=== PATIENT | female | born 1955 | race Caucasian/White ===

== ENCOUNTER 2017-10-10 10:23 | Observation (INO) | payer MEDICARE ==
[2017-10-09 12:20] LABS: BASOPHILS # (AUTO) 0.1 (0.0-0.1); BASOPHILS % 0.6 % (0.0-1.0); EOSINOPHILS # (AUTO) 0.3 (0.0-0.4); EOSINOPHILS % 3.4 % (0.0-6.0); HEMATOCRIT 44.1 % (34.2-44.1); HEMOGLOBIN 15.1 g/dL (12.0-16.0); LYMPHOCYTES # (AUTO) 2.2 (1.0-3.2); LYMPHOCYTES % 24.7 % (18.0-39.1); MEAN CORPUSCULAR HEMOGLOBIN 31.5 pg (28-32); MEAN CORPUSCULAR HGB CONC 34.2 g/dL (31-35); MEAN CORPUSCULAR VOLUME 92.1 fL (81-99); MONOCYTES # (AUTO) 0.8 (0.2-0.8); MONOCYTES % 9.3 % (4.4-11.3); NEUTROPHILS # (AUTO) 5.6 (2.1-6.9); NEUTROPHILS % 61.7 % (38.7-80.0); PLATELET COUNT 295 x10e3/uL (140-360); RED BLOOD COUNT 4.79 x10e6/uL (3.6-5.1); RED CELL DISTRIBUTION WIDTH 12.4 % (11.7-14.4)
[2017-10-09 12:39] LABS: ALBUMIN 4.5 g/dL (3.5-5.0); ALBUMIN/GLOBULIN RATIO 1.2 (0.8-2.0); ANION GAP 18.7 mmol/L (8-16); CALCIUM 11.2 mg/dL (8.4-10.2); CREATININE, SERUM 1.4 mg/dL (0.57-1.11); POTASSIUM 5.7 mmol/L (3.5-5.1)
[~2017-10-10] VITALS: Ht 152.4 cm; Wt 63.6 kg
[2017-10-10] VITALS (16 sets, daily range): BP systolic 128–186; BP diastolic 69–90
[~2017-10-10 10:23] MED LIST: AMLODIPINE BESY10 MG PO; ATORVASTATIN CA10 MG PO; CEFDINIR300 MG PO; COMBIVENT RESPIM4 GM IH; LEVOTHYROXINE50 MCG PO; LOSARTAN-HCTZ1 EAC2 PO; LOSARTAN-HCTZ1 EACH PO; METOPROLOL TART25 MG PO; PREDNISONE5 MG PO; PROAIR HFA INH8.5 GM INH; SYMBICORT 16010.2 GM; TAZTIA XT300 MG PO; ULTRAM50 MG PO
[2017-10-10] MEDS ORDERED: SODIUM CHLORIDE 0.9% 1000ML 1,000 ML ONE (10:29)
[2017-10-10] MEDS ORDERED: DIPHENHYDRAMINE HCL 25 MG CAP PO SCH (11:15)
[2017-10-10] MEDS ORDERED: ALPRAZOLAM 0.5 MG TAB PO SCH (11:15)
[2017-10-10] MEDS ORDERED: LIDOCAINE HCL 2% LOCAL 20 ML VIAL ONE (15:17)
[2017-10-10] MEDS ORDERED: IOPAMIDOL 300MG/ML 100 ML INFUS..BTL IV ONE ×2 (15:17→15:37)
[2017-10-10] MEDS ORDERED: MIDAZOLAM HCL 2 MG/2 ML VIAL ONE ×2 (15:17→15:56)
[2017-10-10] MEDS ORDERED: HEPARIN SOD/SOD CHLORIDE 2,000 ML ONE (15:17)
[2017-10-10] MEDS ORDERED: FENTANYL CITRATE/PF 100MCG/2 ML INJ ONE (15:17)
[2017-10-10] MEDS ORDERED: HEPARIN SOD (PORCINE) 1000 UNIT/ML 30ML ONE (15:27)
[2017-10-10] MEDS ORDERED: VERAPAMIL HCL 2.5 MG/ML 2 ML VIAL ONE (15:27)
[2017-10-10] MEDS ORDERED: NITROGLYCERIN/D5W 200 MCG/ML 250 ML ONE (15:27)
[2017-10-10] MEDS ORDERED: SODIUM CHLORIDE 0.9% 1000ML 2,000 ML ONE (15:28)
[2017-10-10] MEDS ORDERED: PRASUGREL 10 MG TAB ONE (15:45)
[2017-10-10] MEDS ORDERED: PROTAMINE SULFATE 10 MG/ML 5 ML VIAL ONE (15:56)
[2017-10-10] MEDS ORDERED: SODIUM CHLORIDE 0.9% 50ML 50 ML ONE (15:57)
--- NOTE | 2017-10-10 18:35 | Operative Report ---
DATE OF PROCEDURE: October 10, 2017 INDICATIONS: Peripheral arterial disease with claudication. PROCEDURES PERFORMED 1. Abdominal aortogram and bilateral lower extremity angiograms. 2. Selective placement of catheter from the right femoral artery to the left superficial femoral artery. 3. Additional 3rd-order catheter placement from the right femoral artery to the left peroneal artery. 4. Atherectomy and angioplasty of left peroneal artery. 5. Atherectomy and drug-coated balloon angioplasty of left popliteal artery. 6. Left common iliac artery stent placement. 7. Deployment of right groin Mynx vascular closure device. COMPLICATIONS: None. RECOMMENDATIONS: Dual antiplatelet therapy. Access was obtained in the right femoral artery. Abdominal aortogram demonstrated high ectatic abdominal aorta 50%, right common iliac artery 50%, left common iliac artery 80% proximal stenosis with 40 mm gradient. Right external iliac artery had 50% stenosis. Femoral arteries are not well visualized. The catheter was then advanced from the right femoral artery to the left superficial femoral artery. Distal popliteal artery had 80% stenosis. The pedal vessels could not be seen. The catheter was then advanced from the right femoral artery to the left peroneal artery confirming 2-vessel runoff and 80% stenosis in the left peroneal artery. A decision was made to intervene on the peroneal, the femoral and iliac arteries. Orbital atherectomy was performed. A small contained perforation in the left peroneal artery was noted and tamponaded with a 2.5-mm balloon. The femoral artery atherectomy resulted in large amounts of visible thrombus for which manual aspiration was required. Balloon angioplasty with a 4-mm drug-coated balloon and a 7 x 39 mm stent was deployed in the left common iliac artery without complications. The right groin was repaired using the Mynx closure device. Patient will be observed in the hospital overnight. Job#: [id number]
[2017-10-10] MEDS ORDERED: SODIUM CHLORIDE 0.9% 1000ML 1,000 ML IV ONE (20:00)
[2017-10-10] MEDS ORDERED: TRAMADOL HCL 50 MG TAB PO PRN (20:15)
[2017-10-10] MEDS ORDERED: ATORVASTATIN 10 MG TAB PO SCH (21:00)
[2017-10-10] MEDS ORDERED: ATORVASTATIN 20 MG TAB PO SCH (21:00)
[2017-10-10] MEDS: MORPHINE SULFATE 2 MG/ML SYR IV PRN (21:35)
[2017-10-11 00:45] VITALS: BP 131/62
[2017-10-11] MEDS: MORPHINE SULFATE 2 MG/ML SYR IV PRN (02:25)
[2017-10-11 05:30] VITALS: BP 149/67
[2017-10-11] MEDS ORDERED: LEVOTHYROXINE SODIUM 50 MCG TAB PO SCH (06:00)
[2017-10-11 06:33] LABS: BASOPHILS % 0.4 % (0.0-1.0); EOSINOPHILS # (AUTO) 0.2 (0.0-0.4); EOSINOPHILS % 3.1 % (0.0-6.0); HEMATOCRIT 38.2 % (34.2-44.1); HEMOGLOBIN 13.3 g/dL (12.0-16.0); LYMPHOCYTES # (AUTO) 1.1 (1.0-3.2); LYMPHOCYTES % 15.4 % (18.0-39.1); MEAN CORPUSCULAR HEMOGLOBIN 31.1 pg (28-32); MEAN CORPUSCULAR HGB CONC 34.8 g/dL (31-35); MEAN CORPUSCULAR VOLUME 89.5 fL (81-99); MONOCYTES # (AUTO) 0.7 (0.2-0.8); MONOCYTES % 9.9 % (4.4-11.3); NEUTROPHILS # (AUTO) 5.1 (2.1-6.9); NEUTROPHILS % 70.9 % (38.7-80.0); PLATELET COUNT 244 x10e3/uL (140-360); RED BLOOD COUNT 4.27 x10e6/uL (3.6-5.1); RED CELL DISTRIBUTION WIDTH 12.5 % (11.7-14.4)
[2017-10-11 06:52] LABS: ANION GAP 11.5 mmol/L (8-16); BLOOD UREA NITROGEN 10 mg/dL (7-26); BUN/CREATININE RATIO 12 (6-25); CALCIUM 9.1 mg/dL (8.4-10.2); CARBON DIOXIDE 28 mmol/L (22-29); CHLORIDE 102 mmol/L (98-107); CREATININE, SERUM 0.84 mg/dL (0.57-1.11); EST GLOMERULAR FILTRATION RATE > 60 ML/MIN (60-); GLUCOSE 96 mg/dL (74-118); POTASSIUM 3.5 mmol/L (3.5-5.1); SODIUM 138 mmol/L (136-145)
[2017-10-11 07:37] VITALS: BP 141/75
[2017-10-11] MEDS ORDERED: METOPROLOL TARTRATE 25 MG TAB PO SCH (09:00)
[2017-10-11] MEDS ORDERED: ASPIRIN 325 MG TAB PO SCH (09:00)
[2017-10-11] MEDS ORDERED: AMLODIPINE BESYLATE 10 MG TAB PO SCH (09:00)
[2017-10-11] MEDS ORDERED: HYDROCHLOROTHIAZIDE 25 MG TAB PO SCH (09:00)
[2017-10-11] MEDS ORDERED: CLOPIDOGREL BISULFATE 75 MG TAB PO SCH (09:00)
[2017-10-11] MEDS ORDERED: BUDESONIDE/FORMOTEROL 160/4.5MCG INHALER INH SCH (09:00)
[2017-10-11] MEDS ORDERED: LOSARTAN POTASSIUM 100 MG TAB PO SCH (09:27)
[2017-10-11 10:28] VITALS: BP 141/75
[2017-10-11 11:40] VITALS: BP 148/77
[2017-10-11] MEDS ORDERED: ASPIRIN EC81 MG PO (15:07)
[2017-10-11] MEDS ORDERED: PLAVIX75 MG PO (15:07)
[2017-10-11 15:20] VITALS: BP 120/67
[2017-10-11] MEDS ORDERED: ATORVASTATIN 20 MG TAB PO SCH (21:30)
[2017-10-12] MEDS ORDERED: HYDROCHLOROTHIAZIDE 25 MG TAB PO SCH (09:00)
[2017-10-12] MEDS ORDERED: ASPIRIN 81 MG ENTERIC COATED PO SCH (09:00)
[2017-10-31] MEDS ORDERED: LOSARTAN POTASSIUM 100 MG TAB PO SCH (09:00)
== END 2017-10-11 15:51 | disposition home or self-care (01) ==
LOC: CATH LAB 10:23 → CATH LAB V 16:31 → IMCU 19:26
PROVIDERS: ADMIT Internal Medicine Interventional Cardiology; ATTEND Internal Medicine Interventional Cardiology
DX: I73.9 Peripheral vascular disease, unspecified (principal); J44.9 Chronic obstructive pulmonary disease, unspecified; I10 Essential (primary) hypertension; E03.9 Hypothyroidism, unspecified; M19.91 Primary osteoarthritis, unspecified site; Z88.0 Allergy status to penicillin; E07.9 Disorder of thyroid, unspecified
CPT/HCPCS: 36415 ×2; 37221; 37227; 37231; 75716; 75774; 80048; 80053; 80061; 85025 ×2; C1724; C1769 ×2; C1887; G0378 ×2; J1644; J2001; J2250; J2270 ×2; J2720; J7030; Q9967; 37186; 37225; 37229

== ENCOUNTER → 2019-03-05 | Outpatient (CLI) | payer MEDICARE ==
[~2019-03-05] MED LIST changes: +ASPIRIN EC81 MG PO; +PLAVIX75 MG PO
--- NOTE | 2019-03-05 11:18 | Diagnostic Imaging Report ---
EXAMINATION: MRI of the lumbar spine without contrast HISTORY: Worsening severe back pain for last 6 years COMPARISON: None. TECHNIQUE: Sagittal T1, T2, STIR; axial T2 and proton density. FINDINGS: It is assumed that there are 5 lumbar vertebrae. Curvature/Alignment: Normal lordosis. Subtle right-sided curvature. Vertebrae: No evidence of recent fracture, infection, or neoplasm. Diffuse heterogeneous bone marrow signal intensity may be related to osteopenia with particularly prominent fatty replacement of the sacrum. Conus: Normal, terminating at L1 Cauda equina: Unremarkable. 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 Lower thoracic: Unremarkable. Paraspinal soft tissues: Atrophic right kidney. Moderate atrophy of the paraspinal muscles. Questionable cholelithiasis, comparison to prior studies if available is recommended , otherwise a right upper quadrant ultrasound is advised. Degenerative changes: L1-L2: Unremarkable. L2-L3: Unremarkable. L3-L4: Minimal symmetric disc bulge and facet arthrosis without stenoses L4-L5: Minimal symmetric disc bulge and posterior processes without stenoses L5-S1: Minimal symmetric disc bulge and bilateral facet arthrosis without stenoses IMPRESSION: 1. Heterogeneous bone marrow signal intensity, which may be related to osteopenia. 2. Otherwise no significant degenerative changes, no disc herniations, no spinal canal or foraminal stenoses. 3. Partially visualized atrophic right kidney and questionable cholelithiasis as described. Signed by: Dr. Sonia Hong M.D. on 03/05/2019 11:15 AM
--- NOTE | 2019-03-05 11:24 | Diagnostic Imaging Report ---
EXAMINATION: MRI of the thoracic spine without contrast HISTORY: Worsening severe back pain COMPARISON: None. TECHNIQUE: Sagittal T1 without contrast, T2, and STIR; axial T2. Coronal T2. FINDINGS: Curvature: Normal kyphosis. Vertebrae: No evidence of recent fracture, infection, or neoplasm. Mild heterogeneous bone marrow signal intensity which may be related to osteopenia. Discs: Normal Spinal canal: No mass or abnormal blood vessels. Spinal cord: Normal size and signal intensity. Foramina: Unremarkable. Paraspinal soft tissues: Possible right lower lung atelectases/pleural thickening. Partially visualized atrophic right kidney. Proximal ribs: No abnormal signal intensity. IMPRESSION: 1. No thoracic spine abnormalities to explain the patient's symptoms, particularly no disc herniations, spinal canal or foraminal stenosis. 2. Partially visualized right atrophic kidney and possible right lower lung atelectasis, comparison to prior studies if available is recommended. Signed by: Dr. Sonia Hong M.D. on 03/05/2019 11:21 AM
== END ==
LOC: MRI 08:44
PROVIDERS: ATTEND Internal Medicine Critical Care Medicine
DX: M54.6 Pain in thoracic spine (principal); M54.5 Low back pain; N26.1 Atrophy of kidney (terminal)
CPT/HCPCS: 72146; 72148

== ENCOUNTER → 2019-12-31 | Day surgery (SDC) | payer OTHER ==
[2019-12-26 11:47] LABS: BASOPHILS % 0.3 % (0.0-1.0); EOSINOPHILS # (AUTO) 0.1 (0.0-0.4); EOSINOPHILS % 0.8 % (0.0-6.0); HEMATOCRIT 45.4 % (34.2-44.1); HEMOGLOBIN 14.9 g/dL (12.0-16.0); LYMPHOCYTES # (AUTO) 1.7 (1.0-3.2); LYMPHOCYTES % 14.3 % (18.0-39.1); MEAN CORPUSCULAR HEMOGLOBIN 30.4 pg (28-32); MEAN CORPUSCULAR HGB CONC 32.8 g/dL (31-35); MEAN CORPUSCULAR VOLUME 92.7 fL (81-99); MONOCYTES # (AUTO) 1.1 (0.2-0.8); NEUTROPHILS # (AUTO) 9.1 (2.1-6.9); NEUTROPHILS % 75.1 % (38.7-80.0); PLATELET COUNT 365 x10e3/uL (140-360); RED CELL DISTRIBUTION WIDTH 12.9 % (11.7-14.4)
[2019-12-26 12:05] LABS: ALBUMIN 4.7 g/dL (3.5-5.0); ALBUMIN/GLOBULIN RATIO 1.3 (0.8-2.0); ANION GAP 17.2 mmol/L (8-16); CALCIUM 9.9 mg/dL (8.4-10.2); CREATININE, SERUM 1.33 mg/dL (0.57-1.11); POTASSIUM 4.2 mmol/L (3.5-5.1)
[~2019-12-31] VITALS: Ht 152.4 cm; Wt 54.4 kg
[2019-12-31] VITALS (16 sets, daily range): BP systolic 134–197; BP diastolic 64–82
[~2019-12-31] MED LIST changes: +CLONIDINE HCL0.1 MG PO; +DILTIAZEM 24HR180 MG PO; +FENTANYL CITRATE/PF 100MCG/2 ML INJ ONE; +HEPARIN SOD/SOD CHLORIDE 2,000 ML ONE; +IOPAMIDOL 300MG/ML 100 ML INFUS..BTL IV ONE; +LIDOCAINE HCL 2% LOCAL 20 ML VIAL ONE; +LOSARTAN-HCTZ1 EAC1 PO; +MIDAZOLAM HCL 2 MG/2 ML VIAL ONE; +SODIUM CHLORIDE 0.9% 1000ML 1,000 ML ONE
--- NOTE | 2019-12-31 14:35 | Operative Report ---
DATE OF PROCEDURE: 12/31/2019 SURGEON: Chet Aguilar MD INDICATIONS: Peripheral arterial disease, claudication. PROCEDURES PERFORMED: 1. Abdominal aortogram. 2. Abdominal aorta catheter placement. COMPLICATIONS: None. RECOMMENDATIONS: Surgical consultation. DESCRIPTION OF PROCEDURE: Access was obtained in the right femoral artery using ultrasound guidance. A 6-Thai sheath was placed. A 92% to 99% proximal abdominal aortic stenosis. Renal vessels were not well visualized. Left iliac stent was patent. Common femoral artery 50% calcified stenosis, mild disease in the femoral arteries with 2-vessel runoff to both lower extremities. No intervention deemed necessary. Sheaths removed under manual pressure. The patient discharged home the same day. Chet Aguilar MD KSB/MODL /[id number]
--- NOTE | 2019-12-31 14:45 | NUR ---
bedside report received from Po Tony RN. Alert oriented and appropriate, PERRLA, respirations even and unlabored to room air. Pulses x4 extremities equal and weak. Right groin dressing CDI. left groin w/o s/s of complications Skin warm and dry integrity appears intact, presents healthy w/o s/s of infiltration or complaint. Abdomen soft and supple. pt offered toileting, denies need to urinate or defecate. Personal affects with patient. Family not available. Pt understanding of POC. Bedside telemetry/VS reviewed. Currently w/o complaint of pain or need. Call light within reach, bed low and locked, side rails up x2. assume of care -cgf
--- NOTE | 2019-12-31 16:00 | NUR ---
Pt meets DC criteria. right groin assessed for s/s of complication and presence of hematoma. general skin warm, dry, no discolor, and pulses present in all extremities . IV removed by DS RN. Distal tip appears intact. VS WNL. Pt denies pain, sob, or need at this time. Family at bedside. Review of discharge paperwork and follow up instructions. verbalized understanding. Pt to wheelchair and transported to front of hospital. Transferred to private vehicle under own strength w/o incident with DC paperwork in hand. - cgf
== END | disposition home or self-care (01) ==
LOC: CATH LAB 08:13
PROVIDERS: ATTEND Internal Medicine Interventional Cardiology
DX: I73.9 Peripheral vascular disease, unspecified (principal); Z88.0 Allergy status to penicillin; Z11.59 Encounter for screening for other viral diseases; Z01.812 Encounter for preprocedural laboratory examination
CPT/HCPCS: 36415; 75630; 76937; 80053; 85025; C1769 ×2; J2001; J2250; J3010; J7030; Q9967; U0002; 99152; 99153

== ENCOUNTER → 2020-03-10 | Day surgery (SDC) | payer MEDICARE ==
[2020-03-05 11:16] LABS: BASOPHILS # (AUTO) 0.1 (0.0-0.1); BASOPHILS % 0.6 % (0.0-1.0); EOSINOPHILS # (AUTO) 0.3 (0.0-0.4); EOSINOPHILS % 2.7 % (0.0-6.0); HEMATOCRIT 39.9 % (34.2-44.1); LYMPHOCYTES # (AUTO) 1.5 (1.0-3.2); LYMPHOCYTES % 13.5 % (18.0-39.1); MEAN CORPUSCULAR HEMOGLOBIN 31.1 pg (28-32); MEAN CORPUSCULAR HGB CONC 32.6 g/dL (31-35); MEAN CORPUSCULAR VOLUME 95.5 fL (81-99); MONOCYTES % 9.3 % (4.4-11.3); NEUTROPHILS # (AUTO) 7.9 (2.1-6.9); NEUTROPHILS % 73.1 % (38.7-80.0); PLATELET COUNT 451 x10e3/uL (140-360); RED BLOOD COUNT 4.18 x10e6/uL (3.6-5.1); RED CELL DISTRIBUTION WIDTH 13.2 % (11.7-14.4)
[2020-03-05 11:47] LABS: ALBUMIN 3.6 g/dL (3.5-5.0); ALBUMIN/GLOBULIN RATIO 0.8 (0.8-2.0); ANION GAP 16.7 mmol/L (8-16); CALCIUM 10.2 mg/dL (8.4-10.2); CREATININE, SERUM 1.31 mg/dL (0.57-1.11); POTASSIUM 3.7 mmol/L (3.5-5.1)
--- NOTE | 2020-03-09 20:30 | NUR ---
Pt contacted by phone for interview of scheduled procedure. Review of medical history and current medications will be reviewed on arrival in the morning. Procedural consent on day of arrival to be completed, pre-op orders, and twice bathing education completed. All questions clarified and or answered where appropriate. pt verbalizes understanding to include day of procedure expectations and practice social distancing. Pt aware to be using provided/ personal mask for COVID-19 mitigation. Pt to bring medication list day of . - [facility] – [place]
[2020-03-10] VITALS (7 sets, daily range): BP systolic 116–133; BP diastolic 60–64
[~2020-03-10] MED LIST changes: +ALPRAZOLAM 0.5 MG TAB ONE; +DIPHENHYDRAMINE HCL 25 MG CAP ONE; -IOPAMIDOL 300MG/ML 100 ML INFUS..BTL IV ONE; +IOPAMIDOL 370 MG/ML 200 ML INFUS..BTL INJ ONE
--- NOTE | 2020-03-10 17:00 | NUR ---
Report received from Richard Tony RN. Alert oriented and appropriate, PERRLA, respirations even and unlabored to room air. Pulses x4 extremities equal and palpable . Cap fill brisk < 3 sec. + neurovascular function of right wrist/hand w/ TR Band present. Present s/s of swelling and discolor at site. hematoma being pressed out by Tonio Reese RTr and Dinesh RTr. Borders demarcated and hematoma was from procedural room originally with 2 TR bands. repositioned with one with assistance of manual BP cuff to single TR band w/ 14ml air. VS trend reviewed and medications given. Skin warm and dry integrity appears intact in general in part x/ for pressure area where blood pressure cuff being used. small circular 5mm-8mm ecchymotic circles appearing . pt states " this always happens, its no big deal" right forearm discoloration outlined proximal to TR band 2cm base x 5cm length tapered. borders outlined. IV left hand presents healthy w/o s/s of infiltration or complaint. Abdomen soft and supple. pt offered toileting, denies need to urinate or defecate. Resting with HOB elevated aprox 30o. Personal affects with patient. Pt verbalizes understanding of POC. 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 bed low and locked, side rails up x2 and call light at side. bedside VS monitoring initiated. pt using provided/ personal mask for COVID-19 mitigation. assumption of care. SO brought to room -f
--- NOTE | 2020-03-10 17:15 | Operative Report ---
DATE OF PROCEDURE: 03/10/2020 SURGEON: Chet Aguilar MD INDICATIONS: Coronary artery disease, angina, and abnormal stress test. PROCEDURES PERFORMED: 1. Ultrasound-guided access in the right radial artery with sheath placement. 2. Conscious sedation administration, hemodynamic, and neurological monitoring by label folder RN, supervision by , 35 minutes. 3. Left heart catheterization, selective coronary angiography. 4. Deployment of right wrist TR band. COMPLICATIONS: None. BLOOD LOSS: Minimal. RECOMMENDATIONS: Medical therapy. Cleared for vascular surgery. DESCRIPTION OF PROCEDURE: Access was obtained in the right radial artery using ultrasound guidance. A 5-Chilean sheath was placed. Coronary angiography demonstrated diffuse 30% to 50% luminal irregularities and stenosis, diffusely calcified vessels. No critical stenosis or occlusions. No intervention deemed necessary. LV end-diastolic pressure was normal. Right wrist TR band applied. The patient discharged home the same day. Chet Aguilar MD KSB/MODL /[id number]
--- NOTE | 2020-03-10 18:20 | NUR ---
Nutritional need met. Right wrist neurovascular function intact w/o samantha in hematoma presentation.
--- NOTE | 2020-03-10 19:10 | NUR ---
Pt meets discharge criteria. VS wnl, alert and oriented. Pt and Family Understands discharge instruction. Overall general assess w/o gross outliers. Skin warm, dry, and intact. Right radial dressing soft w/o noticeable change of hematoma presentation. + neurovascular function of right hand present. pt verbalizes understanding when to remove coban dressing. IV removed and appears distal tip is intact, Richard Tony staff reporter member verifying. Pt maintains mask on for COVID 19 precautions being taken by wheel chair to awaiting car. Transfers w/o gross distress with discharge paperwork in hand.-cgf
== END | disposition home or self-care (01) ==
LOC: CATH LAB 13:52
PROVIDERS: ATTEND Internal Medicine Interventional Cardiology
DX: I25.118 Atherosclerotic heart disease of native coronary artery with other forms of angina pectoris (principal); R94.39 Abnormal result of other cardiovascular function study; I73.9 Peripheral vascular disease, unspecified; I70.0 Atherosclerosis of aorta; I10 Essential (primary) hypertension; J44.9 Chronic obstructive pulmonary disease, unspecified; Z01.812 Encounter for preprocedural laboratory examination; Z20.828 Contact with and (suspected) exposure to other viral communicable diseases; Z79.82 Long term (current) use of aspirin; Z82.49 Family history of ischemic heart disease and other diseases of the circulatory system
CPT/HCPCS: 36415; 76937; 80053; 85025; 93454; C1769; C1887; J2001; J2250; J3010; J7030; Q9967; U0002; 99152

== ENCOUNTER 2020-03-29 09:19 | Observation (INO) | payer MEDICARE ==
[~2020-03-29] VITALS: Ht 152.4 cm; Wt 54.0 kg
[~2020-03-29 09:19] MED LIST changes: -ALPRAZOLAM 0.5 MG TAB ONE; -DIPHENHYDRAMINE HCL 25 MG CAP ONE; -FENTANYL CITRATE/PF 100MCG/2 ML INJ ONE; -HEPARIN SOD/SOD CHLORIDE 2,000 ML ONE; -IOPAMIDOL 370 MG/ML 200 ML INFUS..BTL INJ ONE; -LIDOCAINE HCL 2% LOCAL 20 ML VIAL ONE; -MIDAZOLAM HCL 2 MG/2 ML VIAL ONE; -SODIUM CHLORIDE 0.9% 1000ML 1,000 ML ONE
[2020-03-29 10:07] LABS: BASOPHILS # (AUTO) 0.1 (0.0-0.1); BASOPHILS % 0.4 % (0.0-1.0); EOSINOPHILS # (AUTO) 0.2 (0.0-0.4); EOSINOPHILS % 1.8 % (0.0-6.0); HEMATOCRIT 37.5 % (34.2-44.1); HEMOGLOBIN 12.4 g/dL (12.0-16.0); LYMPHOCYTES # (AUTO) 1.3 (1.0-3.2); LYMPHOCYTES % 10.4 % (18.0-39.1); MEAN CORPUSCULAR HEMOGLOBIN 30.1 pg (28-32); MEAN CORPUSCULAR HGB CONC 33.1 g/dL (31-35); MONOCYTES # (AUTO) 1.1 (0.2-0.8); MONOCYTES % 8.4 % (4.4-11.3); NEUTROPHILS # (AUTO) 9.9 (2.1-6.9); NEUTROPHILS % 77.7 % (38.7-80.0); PLATELET COUNT 672 x10e3/uL (140-360); RED BLOOD COUNT 4.12 x10e6/uL (3.6-5.1); RED CELL DISTRIBUTION WIDTH 12.8 % (11.7-14.4)
[2020-03-29 10:21] LABS: ALANINE AMINOTRANSFERASE 10 IU/L (0-55); ALBUMIN 3.1 g/dL (3.5-5.0); ALBUMIN/GLOBULIN RATIO 0.6 (0.8-2.0); ALKALINE PHOSPHATASE 104 IU/L (40-150); ANION GAP 18.1 mmol/L (8-16); BLOOD UREA NITROGEN 19 mg/dL (7-26); BUN/CREATININE RATIO 12 (6-25); CALCIUM 9.8 mg/dL (8.4-10.2); CARBON DIOXIDE 24 mmol/L (22-29); CHLORIDE 98 mmol/L (98-107); CREATINE KINASE 27 IU/L (29-168); CREATININE, SERUM 1.56 mg/dL (0.57-1.11); EST GLOMERULAR FILTRATION RATE 33 ML/MIN (60-); GLUCOSE 148 mg/dL (74-118); POTASSIUM 3.1 mmol/L (3.5-5.1); SODIUM 137 mmol/L (136-145)
[2020-03-29 10:22] LABS: INR 0.99; PROTHROMBIN TIME 13.6 seconds (11.9-14.5)
[2020-03-29 10:23] LABS: PARTIAL THROMBOPLASTIN TIME 27.2 seconds (23.8-35.5)
[2020-03-29] MEDS ORDERED: POTASSIUM CHLORIDE 20 MEQ TAB CR PO STA (11:02)
[2020-03-29] MEDS ORDERED: SODIUM CHLORIDE 0.9% 1000ML 1,000 ML IV SCH (11:30)
[2020-03-29] MEDS ORDERED: LEVOFLOXACIN 500MG/D5W 100ML 100 ML IV ONE (11:30)
[2020-03-29] MEDS ORDERED: METHYLPREDNISOLONE SOD SUCC 125 MG/2ML VIAL IV ONE (12:00)
[2020-03-29] MEDS: ALBUTEROL SULF 0.083% NEB SOLN 3 ML NEB NEB SCH ×3 (12:38→19:45)
[2020-03-29] MEDS: IPRATROPIUM BROMIDE 0.02% 2.5 ML NEB NEB SCH ×3 (12:39→19:45)
[2020-03-29 13:25] VITALS: BP 148/68
[2020-03-29] MEDS ORDERED: ZOLPIDEM TARTRATE 5 MG TAB PO PRN (14:15)
[2020-03-29] MEDS ORDERED: ALBUTEROL SULFATE HFA 8GM INHALATION AEROSOL INH PRN (14:15)
[2020-03-29 16:09] VITALS: BP 146/70
[2020-03-29 17:21] VITALS: BP 148/68
[2020-03-29 17:57] LABS: CREATINE KINASE 24 IU/L (29-168)
[2020-03-29] MEDS: BUDESONIDE/FORMOTEROL 160/4.5MCG INHALER INH SCH (19:45)
[2020-03-29 20:00] VITALS: BP 116/70
[2020-03-29] MEDS ORDERED: ACETAMINOPHEN 325 MG TAB PO PRN (20:45)
[2020-03-29] MEDS ORDERED: HYDRALAZINE HCL 20 MG/ML VIAL IV PRN (20:45)
[2020-03-29] MEDS ORDERED: ALBUTEROL/IPRATROPIUM 3 ML NEB NEB PRN (20:45)
[2020-03-29] MEDS ORDERED: ACETAMINOPHEN/CODEINE 300MG - 30MG TAB PO PRN (20:45)
[2020-03-29] MEDS: METHYLPREDNISOLONE SOD SUCC 40 MG/ML VIAL 1ML IV SCH (20:45)
[2020-03-29] MEDS ORDERED: FUROSEMIDE INJ 10 MG/ML 2 ML VIAL IV ONE (20:45)
[2020-03-29] MEDS ORDERED: GUAIFENESIN 600MG/DEXTROMETHORPHAN 30MG TABSR PO PRN (20:45)
[2020-03-29] MEDS ORDERED: ATORVASTATIN 10 MG TAB PO SCH (21:00)
[2020-03-29 21:33] VITALS: BP 116/70
[2020-03-30] VITALS: BP 162/73
[2020-03-30] MEDS: IPRATROPIUM BROMIDE 0.02% 2.5 ML NEB NEB SCH (00:40)
[2020-03-30] MEDS: ALBUTEROL SULF 0.083% NEB SOLN 3 ML NEB NEB SCH (00:40)
[2020-03-30 02:09] LABS: CREATINE KINASE 39 IU/L (29-168)
[2020-03-30 04:00] VITALS: BP 157/75
[2020-03-30] MEDS ORDERED: LEVOTHYROXINE SODIUM 50 MCG TAB PO SCH (06:00)
[2020-03-30 06:31] LABS: BASOPHILS % 0.1 % (0.0-1.0); HEMATOCRIT 32.5 % (34.2-44.1); HEMOGLOBIN 10.5 g/dL (12.0-16.0); LYMPHOCYTES # (AUTO) 0.5 (1.0-3.2); LYMPHOCYTES % 5.3 % (18.0-39.1); MEAN CORPUSCULAR HEMOGLOBIN 29.8 pg (28-32); MEAN CORPUSCULAR HGB CONC 32.3 g/dL (31-35); MEAN CORPUSCULAR VOLUME 92.3 fL (81-99); MONOCYTES # (AUTO) 0.2 (0.2-0.8); MONOCYTES % 1.9 % (4.4-11.3); NEUTROPHILS # (AUTO) 8.8 (2.1-6.9); NEUTROPHILS % 92.2 % (38.7-80.0); PLATELET COUNT 533 x10e3/uL (140-360); RED BLOOD COUNT 3.52 x10e6/uL (3.6-5.1)
[2020-03-30 07:02] LABS: ALBUMIN 2.5 g/dL (3.5-5.0); ALBUMIN/GLOBULIN RATIO 0.6 (0.8-2.0); ANION GAP 15.1 mmol/L (8-16); CALCIUM 8.7 mg/dL (8.4-10.2); CREATININE, SERUM 1.12 mg/dL (0.57-1.11); POTASSIUM 3.1 mmol/L (3.5-5.1)
[2020-03-30] MEDS: BUDESONIDE/FORMOTEROL 160/4.5MCG INHALER INH SCH (07:23)
[2020-03-30 08:00] VITALS: BP 141/65
[2020-03-30] MEDS: METHYLPREDNISOLONE SOD SUCC 40 MG/ML VIAL 1ML IV SCH (08:46)
[2020-03-30 08:51] VITALS: BP 152/70
[2020-03-30] MEDS ORDERED: DILTIAZEM HCL ER 120 MG CAP PO SCH (09:00)
[2020-03-30] MEDS ORDERED: LEVOFLOXACIN 500MG/D5W 100ML 100 ML IV SCH (09:00)
[2020-03-30] MEDS ORDERED: ASPIRIN 81 MG ENTERIC COATED PO SCH (09:00)
[2020-03-30] MEDS ORDERED: DILTIAZEM HCL 180 MG CAP ER PO SCH (09:00)
[2020-03-30] MEDS ORDERED: POTASSIUM CHLORIDE 20 MEQ TAB CR PO ONE (11:17)
[2020-03-30] MEDS ORDERED: FUROSEMIDE INJ 10 MG/ML 2 ML VIAL IV ONE (11:30)
[2020-03-30] MEDS ORDERED: POTASSIUM CHLORIDE 10MEQ EA PO ONE (11:30)
[2020-03-30] MEDS ORDERED: PROAIR HFA INH8.5 GM INH (11:46)
[2020-03-30] MEDS ORDERED: LEVOFLOXACIN250 MG PO ×2 (11:46→12:17)
[2020-03-30] MEDS ORDERED: PREDNISONE10 MG PO (11:46)
[2020-03-30 12:00] VITALS: BP 138/61
== END 2020-03-30 15:00 | disposition home or self-care (01) ==
LOC: ER 09:32 → INTOOBSV 11:37 → ERHOLD 11:37 → MED/SURG2 13:00
PROVIDERS: ADMIT Internal Medicine; ATTEND Internal Medicine
DX: I11.0 Hypertensive heart disease with heart failure (principal); J44.1 Chronic obstructive pulmonary disease with (acute) exacerbation; J45.901 Unspecified asthma with (acute) exacerbation; E78.5 Hyperlipidemia, unspecified; I10 Essential (primary) hypertension; Z20.828 Contact with and (suspected) exposure to other viral communicable diseases; E03.9 Hypothyroidism, unspecified; I73.9 Peripheral vascular disease, unspecified; I50.23 Acute on chronic systolic (congestive) heart failure
CPT/HCPCS: 36415 ×2; 71045; 71250; 80053 ×2; 82550 ×2; 82553 ×2; 83880; 84484 ×2; 85025 ×2; 85610; 85730; 87040; 93005; 93306; 94640 ×3; 96361; 99284; G0378 ×2; J1940 ×2; J1956 ×2; J2920 ×2; J2930; J7030 ×2; U0002

== ENCOUNTER 2020-10-22 16:28 | Inpatient (IN) | payer MEDICARE ==
[~2020-10-22] VITALS: Ht 304.8 cm; Wt 54.0 kg
[~2020-10-22 16:28] MED LIST changes: +LEVOFLOXACIN250 MG PO; +PREDNISONE10 MG PO
[2020-10-22] MEDS ORDERED: ACETIC ACID15 ML (16:54)
[2020-10-22] MEDS ORDERED: AZITHROMYCIN250 MG (16:54)
[2020-10-22 17:21] LABS: BASOPHILS # (AUTO) 0.1 (0.0-0.1); BASOPHILS % 0.4 % (0.0-1.0); EOSINOPHILS # (AUTO) 0.2 (0.0-0.4); EOSINOPHILS % 1.4 % (0.0-6.0); HEMATOCRIT 42.4 % (34.2-44.1); HEMOGLOBIN 13.9 g/dL (12.0-16.0); LYMPHOCYTES # (AUTO) 1.4 (1.0-3.2); LYMPHOCYTES % 11.9 % (18.0-39.1); MEAN CORPUSCULAR HEMOGLOBIN 30.2 pg (28-32); MEAN CORPUSCULAR HGB CONC 32.8 g/dL (31-35); MEAN CORPUSCULAR VOLUME 92.2 fL (81-99); MONOCYTES # (AUTO) 1.1 (0.2-0.8); MONOCYTES % 9.1 % (4.4-11.3); NEUTROPHILS % 76.6 % (38.7-80.0); PLATELET COUNT 441 x10e3/uL (140-360); RED CELL DISTRIBUTION WIDTH 15.9 % (11.7-14.4)
[2020-10-22 17:25] LABS: INR 0.95; PROTHROMBIN TIME 13.3 seconds (11.9-14.5)
[2020-10-22 17:26] LABS: PARTIAL THROMBOPLASTIN TIME 27.5 seconds (23.8-35.5)
[2020-10-22 17:31] LABS: AMYLASE 98 U/L (25-125); LIPASE 26 U/L (8-78)
[2020-10-22 17:35] LABS: CLARITY,URINE SL CLOUDY (CLEAR); COLOR,URINE YELLOW (YELLOW); KETONES,URINE NEGATIVE (NEGATIVE); NITRITE,URINE NEGATIVE (NEGATIVE); PROTEIN,URINE DIPSTICK NEGATIVE (NEGATIVE); URINE UROBILINOGEN 0.2 mg/dL (0.2 - 1)
[2020-10-22 17:35] LABS: ALBUMIN 3.5 g/dL (3.5-5.0); ALBUMIN/GLOBULIN RATIO 0.8 (0.8-2.0); ANION GAP 16.3 mmol/L (8-16); CALCIUM 9.6 mg/dL (8.4-10.2); CREATININE, SERUM 1.17 mg/dL (0.57-1.11); POTASSIUM 3.3 mmol/L (3.5-5.1)
[2020-10-22 17:47] LABS: EPITHELIAL CELLS,URINE FEW /LPF; LEUKOCYTE ESTERASE ,URINE NEGATIVE (NEGATIVE); RBC,URINE 0-5 /HPF (0-5)
[2020-10-22] MEDS: METRONIDAZOLE 500MG/NS 100ML 100 ML IV SCH ×2 (18:45→23:12)
[2020-10-22 19:45] VITALS: BP 175/69
[2020-10-22 19:50] VITALS: BP 175/69
[2020-10-22 20:00] VITALS: BP 175/69
[2020-10-22] MEDS: KCL 20MEQ/.9 SOD CHL 1,000 ML IV SCH (20:59)
[2020-10-22] MEDS: CEFEPIME 1 GM in SODIUM CHLORIDE 0.9% 50ML 50 ML IV SCH (20:59)
[2020-10-23] VITALS (8 sets, daily range): BP systolic 150–178; BP diastolic 62–83
[2020-10-23] MEDS ORDERED: PEG (High)/E-LYTE SOLN 4,000 ML BTL PO ONE ×2 (01:30→01:45)
[2020-10-23] MEDS: CEFEPIME 1 GM in SODIUM CHLORIDE 0.9% 50ML 50 ML IV SCH ×3 (03:53→20:02)
[2020-10-23 05:02] LABS: BASOPHILS # (AUTO) 0.1 (0.0-0.1); BASOPHILS % 0.9 % (0.0-1.0); EOSINOPHILS # (AUTO) 0.2 (0.0-0.4); EOSINOPHILS % 1.8 % (0.0-6.0); HEMATOCRIT 41.3 % (34.2-44.1); HEMOGLOBIN 13.5 g/dL (12.0-16.0); LYMPHOCYTES # (AUTO) 1.1 (1.0-3.2); LYMPHOCYTES % 13.1 % (18.0-39.1); MEAN CORPUSCULAR HEMOGLOBIN 30.9 pg (28-32); MEAN CORPUSCULAR HGB CONC 32.7 g/dL (31-35); MEAN CORPUSCULAR VOLUME 94.5 fL (81-99); MONOCYTES # (AUTO) 0.7 (0.2-0.8); MONOCYTES % 8.6 % (4.4-11.3); NEUTROPHILS # (AUTO) 6.1 (2.1-6.9); NEUTROPHILS % 75.1 % (38.7-80.0); PLATELET COUNT 377 x10e3/uL (140-360); RED BLOOD COUNT 4.37 x10e6/uL (3.6-5.1); RED CELL DISTRIBUTION WIDTH 15.8 % (11.7-14.4)
[2020-10-23] MEDS: METRONIDAZOLE 500MG/NS 100ML 100 ML IV SCH ×3 (05:19→19:04)
[2020-10-23 05:33] LABS: ALBUMIN 3.1 g/dL (3.5-5.0); ALBUMIN/GLOBULIN RATIO 0.8 (0.8-2.0); ANION GAP 14.5 mmol/L (8-16); CALCIUM 8.9 mg/dL (8.4-10.2); CREATININE, SERUM 0.9 mg/dL (0.57-1.11); POTASSIUM 3.5 mmol/L (3.5-5.1)
[2020-10-23] MEDS: ONDANSETRON HCL INJ 2MG/ML 2ML 2 MG/ML VIAL IV PRN (06:45)
[2020-10-23] MEDS ORDERED: PROAIR HFA INH8.5 GM INH (07:19)
[2020-10-23] MEDS ORDERED: SYMBICORT 16010.2 GM INH (07:19)
[2020-10-23] MEDS ORDERED: PROPOFOL IV EMULSION 10 MG/ML 20 ML VIAL ONE (09:22)
[2020-10-23] MEDS ORDERED: MORPHINE SULFATE INJ 2 MG/ML SYR IV PRN ×2 (09:30)
[2020-10-23] MEDS ORDERED: ALBUTEROL/IPRATROPIUM 3 ML NEB NEB PRN (09:30)
[2020-10-23] MEDS: KCL 20MEQ/.9 SOD CHL 1,000 ML IV SCH (10:00)
[2020-10-23] MEDS ORDERED: FENTANYL CITRATE/PF 100MCG/2 ML INJ ONE (13:17)
[2020-10-23] MEDS ORDERED: MIDAZOLAM HCL 2 MG/2 ML VIAL ONE (13:17)
[2020-10-23 19:06] LABS: HEMATOCRIT 36.7 % (34.2-44.1); HEMOGLOBIN 11.6 g/dL (12.0-16.0)
[2020-10-23] MEDS ORDERED: HYOSCYAMINE SULFATE 0.5 MG/ML INJ ONE (19:42)
[2020-10-24] VITALS (7 sets, daily range): BP systolic 158–179; BP diastolic 75–87
[2020-10-24] MEDS: KCL 20MEQ/.9 SOD CHL 1,000 ML IV SCH ×2 (00:24→10:45)
[2020-10-24] MEDS: METRONIDAZOLE 500MG/NS 100ML 100 ML IV SCH ×4 (00:24→17:05)
[2020-10-24] MEDS: CEFEPIME 1 GM in SODIUM CHLORIDE 0.9% 50ML 50 ML IV SCH ×3 (03:38→19:09)
[2020-10-24 04:49] LABS: BASOPHILS % 0.5 % (0.0-1.0); EOSINOPHILS # (AUTO) 0.3 (0.0-0.4); EOSINOPHILS % 3.6 % (0.0-6.0); HEMATOCRIT 36.1 % (34.2-44.1); HEMOGLOBIN 11.6 g/dL (12.0-16.0); LYMPHOCYTES # (AUTO) 0.9 (1.0-3.2); LYMPHOCYTES % 12.5 % (18.0-39.1); MEAN CORPUSCULAR HEMOGLOBIN 30.5 pg (28-32); MEAN CORPUSCULAR HGB CONC 32.1 g/dL (31-35); MONOCYTES # (AUTO) 0.8 (0.2-0.8); NEUTROPHILS # (AUTO) 5.5 (2.1-6.9); NEUTROPHILS % 72.9 % (38.7-80.0); PLATELET COUNT 314 x10e3/uL (140-360); RED CELL DISTRIBUTION WIDTH 15.9 % (11.7-14.4)
[2020-10-24 05:05] LABS: ANION GAP 10.7 mmol/L (8-16); CALCIUM 7.9 mg/dL (8.4-10.2); CREATININE, SERUM 0.89 mg/dL (0.57-1.11); POTASSIUM 3.7 mmol/L (3.5-5.1)
[2020-10-24] MEDS: HYDRALAZINE HCL 20 MG/ML VIAL IV PRN ×2 (05:09→20:54)
[2020-10-24] MEDS: ONDANSETRON HCL INJ 2MG/ML 2ML 2 MG/ML VIAL IV PRN (06:20)
[2020-10-24] MEDS: HYDROCHLOROTHIAZIDE 25 MG TAB PO SCH (10:12)
[2020-10-24] MEDS: ACETAMINOPHEN 325 MG TAB PO PRN ×2 (10:14→19:10)
[2020-10-24] MEDS ORDERED: LOSARTAN POTASSIUM 25 MG TAB PO ONE (10:30)
[2020-10-24] MEDS ORDERED: LEVOTHYROXINE SODIUM 50 MCG TAB PO ONE (10:30)
[2020-10-24] MEDS: BUDESONIDE/FORMOTEROL 160/4.5MCG INHALER INH SCH (19:00)
[2020-10-24] MEDS: ATORVASTATIN 10 MG TAB PO SCH (19:09)
[2020-10-24 21:59] LABS: HEMOGLOBIN 12.3 g/dL (12.0-16.0)
[2020-10-25] VITALS (8 sets, daily range): BP systolic 133–174; BP diastolic 68–83
[2020-10-25] MEDS: METRONIDAZOLE 500MG/NS 100ML 100 ML IV SCH ×5 (00:11→23:00)
[2020-10-25] MEDS: ACETAMINOPHEN 325 MG TAB PO PRN (00:11)
[2020-10-25] MEDS: HYDRALAZINE HCL 20 MG/ML VIAL IV PRN ×3 (03:16→21:02)
[2020-10-25] MEDS: ONDANSETRON HCL INJ 2MG/ML 2ML 2 MG/ML VIAL IV PRN (03:17)
[2020-10-25] MEDS: HYDROCODONE/APAP 5MG-325MG TAB PO PRN ×4 (03:36→23:00)
[2020-10-25] MEDS: CEFEPIME 1 GM in SODIUM CHLORIDE 0.9% 50ML 50 ML IV SCH ×3 (03:36→20:42)
[2020-10-25] MEDS: LEVOTHYROXINE SODIUM 50 MCG TAB PO SCH (05:39)
[2020-10-25] MEDS ORDERED: METOCLOPRAMIDE HCL 10 MG/2ML VIAL IV SCH (06:00)
[2020-10-25] MEDS: BUDESONIDE/FORMOTEROL 160/4.5MCG INHALER INH SCH ×2 (07:00→19:36)
[2020-10-25] MEDS: LOSARTAN POTASSIUM 25 MG TAB PO SCH (08:01)
[2020-10-25] MEDS: HYDROCHLOROTHIAZIDE 25 MG TAB PO SCH ×4 (08:01→08:18)
[2020-10-25] MEDS ORDERED: DILTIAZEM HCL ER 90MG CAPSULE PO SCH (09:00)
[2020-10-25] MEDS ORDERED: HYDROCHLOROTHIAZIDE 25 MG TAB PO ONE (11:00)
[2020-10-25] MEDS: METOCLOPRAMIDE HCL 10 MG/2ML VIAL IV PRN ×2 (13:13→20:42)
[2020-10-25] MEDS: PANTOPRAZOLE SOD 40 MG TABEC PO SCH (16:30)
[2020-10-25] MEDS: ATORVASTATIN 10 MG TAB PO SCH (20:42)
[2020-10-26] VITALS (7 sets, daily range): BP systolic 122–186; BP diastolic 64–86
[2020-10-26 05:26] LABS: BASOPHILS % 0.2 % (0.0-1.0); EOSINOPHILS # (AUTO) 0.1 (0.0-0.4); EOSINOPHILS % 0.9 % (0.0-6.0); HEMOGLOBIN 12.6 g/dL (12.0-16.0); LYMPHOCYTES # (AUTO) 0.9 (1.0-3.2); LYMPHOCYTES % 10.4 % (18.0-39.1); MEAN CORPUSCULAR HEMOGLOBIN 31.1 pg (28-32); MEAN CORPUSCULAR HGB CONC 33.2 g/dL (31-35); MEAN CORPUSCULAR VOLUME 93.8 fL (81-99); MONOCYTES # (AUTO) 0.7 (0.2-0.8); MONOCYTES % 8.2 % (4.4-11.3); NEUTROPHILS # (AUTO) 7.3 (2.1-6.9); NEUTROPHILS % 79.9 % (38.7-80.0); PLATELET COUNT 346 x10e3/uL (140-360); RED BLOOD COUNT 4.05 x10e6/uL (3.6-5.1); RED CELL DISTRIBUTION WIDTH 15.9 % (11.7-14.4)
[2020-10-26] MEDS: HYDROCODONE/APAP 5MG-325MG TAB PO PRN (05:29)
[2020-10-26] MEDS: METOCLOPRAMIDE HCL 10 MG/2ML VIAL IV PRN (05:29)
[2020-10-26] MEDS: CEFEPIME 1 GM in SODIUM CHLORIDE 0.9% 50ML 50 ML IV SCH ×2 (05:29→11:17)
[2020-10-26] MEDS: LEVOTHYROXINE SODIUM 50 MCG TAB PO SCH (05:29)
[2020-10-26 05:53] LABS: CREATININE, SERUM 0.93 mg/dL (0.57-1.11)
[2020-10-26] MEDS: BUDESONIDE/FORMOTEROL 160/4.5MCG INHALER INH SCH (07:30)
[2020-10-26] MEDS ORDERED: POTASSIUM CHLORIDE 20 MEQ TAB CR PO ONE ×2 (08:00→10:30)
[2020-10-26] MEDS: HYDROCHLOROTHIAZIDE 25 MG TAB PO SCH (08:21)
[2020-10-26] MEDS: LOSARTAN POTASSIUM 25 MG TAB PO SCH (08:21)
[2020-10-26] MEDS: PANTOPRAZOLE SOD 40 MG TABEC PO SCH ×2 (08:21→15:15)
[2020-10-26] MEDS ORDERED: ONDANSETRON HCL 4 MG ORAL DISINTEGRATING TAB PO PRN (08:45)
[2020-10-26] MEDS ORDERED: DILTIAZEM HCL ER 90MG CAPSULE PO SCH ×2 (09:00)
[2020-10-26] MEDS ORDERED: LOSARTAN POTASSIUM 25 MG TAB PO SCH (09:00)
[2020-10-26] MEDS ORDERED: POTASSIUM CHLORIDE 20MEQ/100ML 100 ML IV ONE (09:45)
[2020-10-26] MEDS ORDERED: FLAGYL500 MG PO (09:47)
[2020-10-26] MEDS ORDERED: LEVOFLOXACIN250 MG PO (09:47)
[2020-10-26] MEDS ORDERED: PROTONIX40 MG/ML PO (09:47)
[2020-10-26] MEDS: HYDRALAZINE HCL 20 MG/ML VIAL IV PRN (12:49)
[2020-10-26] MEDS ORDERED: METOPROLOL TARTRATE 50 MG TAB PO ONE (15:45)
[2020-10-27] MEDS ORDERED: POTASSIUM CHLORIDE 20 MEQ TAB CR PO SCH (09:00)
== END 2020-10-26 17:00 | disposition home or self-care (01) | DRG 392 ==
LOC: ER 17:08 → ERHOLD 18:46 → MED/SURG2 19:36
PROVIDERS: ADMIT Internal Medicine; ATTEND Internal Medicine
PROC: 0DBH8ZX Excision of Cecum, Via Natural or Artificial Opening Endoscopic, Diagnostic (ICD-10-PCS; principal; 2020-10-23 17:30)
PROC: 0DBN8ZX Excision of Sigmoid Colon, Via Natural or Artificial Opening Endoscopic, Diagnostic (ICD-10-PCS; 2020-10-23 17:30)
PROC: 0DBP8ZX Excision of Rectum, Via Natural or Artificial Opening Endoscopic, Diagnostic (ICD-10-PCS; 2020-10-23 17:30)
DX: K52.89 Other specified noninfective gastroenteritis and colitis (principal); I48.20 Chronic atrial fibrillation, unspecified; J44.1 Chronic obstructive pulmonary disease with (acute) exacerbation; E86.0 Dehydration; I10 Essential (primary) hypertension; I25.10 Atherosclerotic heart disease of native coronary artery without angina pectoris; I73.9 Peripheral vascular disease, unspecified; D12.0 Benign neoplasm of cecum; K62.1 Rectal polyp; E03.9 Hypothyroidism, unspecified; R07.9 Chest pain, unspecified; Z88.0 Allergy status to penicillin; R51.9 Headache, unspecified; E87.6 Hypokalemia
CPT/HCPCS: 36415; 45378; 45380; 45385; 70450; 74176; 80048; 80053; 81001; 82150; 83690; 84132; 84484; 85014; 85018; 85025; 85610; 85730; 86850; 86900; 87040; 88305; 94640; 99251; 99284; J0360; J0692; J1980; J2250; J2405; J2765; J3010

== ENCOUNTER 2021-04-06 14:41 | Emergency (ER) | payer MEDICARE ==
[~2021-04-06] VITALS: Ht 304.8 cm; Wt 54.0 kg
[~2021-04-06 14:41] MED LIST changes: +ACETIC ACID15 ML; +AZITHROMYCIN250 MG; +FLAGYL500 MG PO; +PROTONIX40 MG/ML PO; +SYMBICORT 16010.2 GM INH
[2021-04-06] MEDS ORDERED: HYDRALAZINE HCL 20 MG/ML VIAL IV STA (14:56)
[2021-04-06] MEDS ORDERED: ONDANSETRON HCL INJ 2MG/ML 2ML 2 MG/ML VIAL IV STA (14:56)
[2021-04-06 15:47] LABS: BASOPHILS % 0.4 % (0.0-1.0); EOSINOPHILS # (AUTO) 0.3 (0.0-0.4); EOSINOPHILS % 3.2 % (0.0-6.0); HEMOGLOBIN 14.4 g/dL (12.0-16.0); LYMPHOCYTES # (AUTO) 1.6 (1.0-3.2); LYMPHOCYTES % 19.3 % (18.0-39.1); MEAN CORPUSCULAR HEMOGLOBIN 31.7 pg (28-32); MEAN CORPUSCULAR HGB CONC 32.7 g/dL (31-35); MEAN CORPUSCULAR VOLUME 96.9 fL (81-99); MONOCYTES # (AUTO) 0.6 (0.2-0.8); MONOCYTES % 7.3 % (4.4-11.3); NEUTROPHILS # (AUTO) 5.8 (2.1-6.9); NEUTROPHILS % 69.6 % (38.7-80.0); PLATELET COUNT 369 x10e3/uL (140-360); RED BLOOD COUNT 4.54 x10e6/uL (3.6-5.1); RED CELL DISTRIBUTION WIDTH 13.4 % (11.7-14.4)
[2021-04-06 15:57] LABS: ANION GAP 18.4 mmol/L (8-16); CALCIUM 9.4 mg/dL (8.4-10.2); CREATININE, SERUM 1.01 mg/dL (0.57-1.11)
[2021-04-06 16:02] LABS: POTASSIUM 5.4 mmol/L (3.5-5.1)
[2021-04-06] MEDS ORDERED: FUROSEMIDE INJ 10 MG/ML 2 ML VIAL IV NR (16:15)
== END 2021-04-06 16:45 | disposition home or self-care (01) ==
LOC: ER 14:44
DX: I16.0 Hypertensive urgency (principal); E11.65 Type 2 diabetes mellitus with hyperglycemia; E87.5 Hyperkalemia; N18.9 Chronic kidney disease, unspecified; I25.10 Atherosclerotic heart disease of native coronary artery without angina pectoris; J44.9 Chronic obstructive pulmonary disease, unspecified; E78.5 Hyperlipidemia, unspecified; E03.9 Hypothyroidism, unspecified; F41.9 Anxiety disorder, unspecified
CPT/HCPCS: 36415; 80048; 85025; 93005; 99284; J0360; J1940; J2405

== ENCOUNTER 2021-04-11 11:28 | Emergency (ER) | payer MEDICARE ==
[~2021-04-11] VITALS: Ht 304.8 cm; Wt 54.0 kg
[2021-04-11] MEDS ORDERED: SODIUM CHLORIDE 0.9% 1000ML 1,000 ML IV STA (12:11)
[2021-04-11 13:06] LABS: BASOPHILS % 0.4 % (0.0-1.0); EOSINOPHILS # (AUTO) 0.1 (0.0-0.4); EOSINOPHILS % 1.4 % (0.0-6.0); HEMATOCRIT 42.6 % (34.2-44.1); LYMPHOCYTES # (AUTO) 1.2 (1.0-3.2); LYMPHOCYTES % 14.8 % (18.0-39.1); MEAN CORPUSCULAR HEMOGLOBIN 31.4 pg (28-32); MEAN CORPUSCULAR HGB CONC 32.9 g/dL (31-35); MEAN CORPUSCULAR VOLUME 95.5 fL (81-99); MONOCYTES # (AUTO) 0.7 (0.2-0.8); MONOCYTES % 9.2 % (4.4-11.3); NEUTROPHILS # (AUTO) 5.8 (2.1-6.9); NEUTROPHILS % 73.9 % (38.7-80.0); PLATELET COUNT 357 x10e3/uL (140-360); RED BLOOD COUNT 4.46 x10e6/uL (3.6-5.1); RED CELL DISTRIBUTION WIDTH 12.8 % (11.7-14.4)
[2021-04-11 13:16] LABS: INR 0.92; PROTHROMBIN TIME 13.1 seconds (11.9-14.5)
[2021-04-11 13:17] LABS: PARTIAL THROMBOPLASTIN TIME 25.2 seconds (23.8-35.5)
[2021-04-11 13:26] LABS: ALANINE AMINOTRANSFERASE 14 IU/L (0-55); ALBUMIN 3.7 g/dL (3.5-5.0); ALBUMIN/GLOBULIN RATIO 1.1 (0.8-2.0); ALKALINE PHOSPHATASE 103 IU/L (40-150); ANION GAP 20.6 mmol/L (8-16); BLOOD UREA NITROGEN 15 mg/dL (7-26); BUN/CREATININE RATIO 12 (6-25); CALCIUM 9.6 mg/dL (8.4-10.2); CARBON DIOXIDE 18 mmol/L (22-29); CHLORIDE 103 mmol/L (98-107); CREATINE KINASE 41 IU/L (29-168); CREATININE, SERUM 1.24 mg/dL (0.57-1.11); EST GLOMERULAR FILTRATION RATE 43 ML/MIN (60-); GLUCOSE 164 mg/dL (74-118); MAGNESIUM 2.1 MG/DL (1.3-2.1); POTASSIUM 3.6 mmol/L (3.5-5.1); SODIUM 138 mmol/L (136-145)
[2021-04-11 13:57] LABS: CLARITY,URINE CLEAR (CLEAR); COLOR,URINE YELLOW (YELLOW)
[2021-04-11 13:59] LABS: KETONES,URINE NEGATIVE (NEGATIVE); LEUKOCYTE ESTERASE ,URINE NEGATIVE (NEGATIVE); NITRITE,URINE NEGATIVE (NEGATIVE); PROTEIN,URINE DIPSTICK NEGATIVE (NEGATIVE); URINE UROBILINOGEN 0.2 mg/dL (0.2 - 1)
[2021-04-11 14:08] LABS: BACTERIA,URINE MODERATE /HPF; EPITHELIAL CELLS,URINE MANY /LPF; RBC,URINE 0-5 /HPF (0-5)
[2021-04-11 16:19] VITALS: BP 146/68
== END 2021-04-11 16:19 | disposition home or self-care (01) ==
LOC: ER 12:00
DX: K62.5 Hemorrhage of anus and rectum (principal); R10.30 Lower abdominal pain, unspecified; R73.9 Hyperglycemia, unspecified; I10 Essential (primary) hypertension; E78.5 Hyperlipidemia, unspecified; E03.9 Hypothyroidism, unspecified; J44.9 Chronic obstructive pulmonary disease, unspecified; I25.10 Atherosclerotic heart disease of native coronary artery without angina pectoris; N18.9 Chronic kidney disease, unspecified; F41.9 Anxiety disorder, unspecified; Z20.822 Contact with and (suspected) exposure to COVID-19; Z87.19 Personal history of other diseases of the digestive system
CPT/HCPCS: 36415; 74176; 80053; 81001; 82550; 82553; 83735; 84484; 85025; 85610; 85730; 86850; 86900; 87086; 99284; C9113; J7030; U0002

== ENCOUNTER 2021-12-28 10:37 | Emergency (ER) | payer MEDICARE ==
[~2021-12-28] VITALS: Ht 152.4 cm; Wt 66.7 kg
[~2021-12-28 10:37] MED LIST changes: +SODIUM CHLORIDE FLUSH 10 ML SYR IV PRN
[2021-12-28] MEDS ORDERED: ALBUTEROL/IPRATROPIUM 3 ML NEB NEB ONE (11:00)
[2021-12-28] MEDS ORDERED: ASPIRIN 325 MG TAB PO ONE (11:00)
[2021-12-28] MEDS ORDERED: METHYLPREDNISOLONE SOD SUCC 125 MG/2ML VIAL IV ONE (11:00)
[2021-12-28 11:44] LABS: BASOPHILS % 0.3 % (0.0-1.0); EOSINOPHILS # (AUTO) 0.6 (0.0-0.4); EOSINOPHILS % 4.8 % (0.0-6.0); HEMATOCRIT 35.9 % (34.2-44.1); HEMOGLOBIN 11.3 g/dL (12.0-16.0); LYMPHOCYTES # (AUTO) 1.1 (1.0-3.2); LYMPHOCYTES % 9.6 % (18.0-39.1); MEAN CORPUSCULAR HEMOGLOBIN 29.1 pg (28-32); MEAN CORPUSCULAR HGB CONC 31.5 g/dL (31-35); MEAN CORPUSCULAR VOLUME 92.5 fL (81-99); MONOCYTES # (AUTO) 0.9 (0.2-0.8); MONOCYTES % 7.5 % (4.4-11.3); NEUTROPHILS % 77.4 % (38.7-80.0); PLATELET COUNT 503 x10e3/uL (140-360); RED BLOOD COUNT 3.88 x10e6/uL (3.6-5.1); RED CELL DISTRIBUTION WIDTH 17.3 % (11.7-14.4)
[2021-12-28 11:55] LABS: INR 0.87; PROTHROMBIN TIME 12.6 seconds (11.9-14.5)
[2021-12-28 11:56] LABS: PARTIAL THROMBOPLASTIN TIME 27.8 seconds (23.8-35.5)
[2021-12-28 12:05] LABS: ALBUMIN 3.2 g/dL (3.5-5.0); ANION GAP 15.1 mmol/L (8-16); CALCIUM 8.4 mg/dL (8.4-10.2); CREATININE, SERUM 0.78 mg/dL (0.57-1.11); POTASSIUM 3.1 mmol/L (3.5-5.1)
[2021-12-28 13:09] LABS: CLARITY,URINE CLEAR (CLEAR); COLOR,URINE YELLOW (YELLOW); KETONES,URINE NEGATIVE (NEGATIVE); LEUKOCYTE ESTERASE ,URINE NEGATIVE (NEGATIVE); NITRITE,URINE NEGATIVE (NEGATIVE); PROTEIN,URINE DIPSTICK NEGATIVE (NEGATIVE); URINE UROBILINOGEN 0.2 mg/dL (0.2 - 1)
[2021-12-28 13:16] LABS: BACTERIA,URINE FEW /HPF; EPITHELIAL CELLS,URINE FEW /LPF; RBC,URINE 0-5 /HPF (0-5); WBC,URINE (MAN) 0-5 /HPF (0-5)
[2021-12-28] MEDS ORDERED: POTASSIUM CHLORIDE 20 MEQ TAB CR PO STA (13:24)
[2021-12-28] MEDS ORDERED: PREDNISONE20 MG PO (14:19)
[2021-12-28] MEDS ORDERED: PROAIR HFA INH8.5 GM INH (14:19)
[2021-12-28] MEDS ORDERED: ALBUTEROL2.5 MG/3 M INH (14:19)
[2021-12-28] MEDS ORDERED: IOPAMIDOL 370 MG/ML 100 ML INFUS..BTL INJ ONE (15:04)
== END 2021-12-28 14:43 | disposition home or self-care (01) ==
LOC: ER 10:48
DX: R42 Dizziness and giddiness (principal); M48.54XS Collapsed vertebra, not elsewhere classified, thoracic region, sequela of fracture; I10 Essential (primary) hypertension; J44.1 Chronic obstructive pulmonary disease with (acute) exacerbation; E78.5 Hyperlipidemia, unspecified; E03.9 Hypothyroidism, unspecified; I25.10 Atherosclerotic heart disease of native coronary artery without angina pectoris; I73.9 Peripheral vascular disease, unspecified; F41.9 Anxiety disorder, unspecified; Z20.822 Contact with and (suspected) exposure to COVID-19
CPT/HCPCS: 36415; 70450; 71045; 71260; 80053; 81001; 83605; 83880; 84484; 85025; 85610; 85730; 87040; 93005; 99284; Q9967; U0002

== ENCOUNTER → 2025-02-14 | Outpatient (REF) | payer MEDICARE ==
[~2025-02-14] MED LIST changes: +ALBUTEROL2.5 MG/3 M INH; +IOPAMIDOL 370 MG/ML 100 ML INFUS..BTL INJ ONE; +PREDNISONE20 MG PO; +SODIUM CHLORIDE 0.9% 100 ML ONE; -SODIUM CHLORIDE FLUSH 10 ML SYR IV PRN
[2025-02-14 12:42] LABS: EST GLOMERULAR FILTRATION RATE 66.0 ML/MIN (>=60)
== END ==
LOC: CT 11:26
PROVIDERS: ATTEND Physician Assistant
DX: I74.09 Other arterial embolism and thrombosis of abdominal aorta (principal); Z95.828 Presence of other vascular implants and grafts
CPT/HCPCS: 36415; 71275; 74174; 82565; 84520; J7050; Q9967